=== PATIENT | male | born 1945 | race Caucasian/White ===

== ENCOUNTER 2016-08-21 01:05 | Emergency (ER) | payer MEDICARE, OTHER ==
[~2016-08-21] VITALS: Ht 170.2 cm; Wt 78.4 kg
[2016-08-21 01:05] VITALS: TEMP 97.8; Ht 170.2 cm; Wt 78.4 kg
[~2016-08-21 01:05] MED LIST: AMIT10TA6 PO; HYDR-3989 PO; HYDR12.530 PO; PERM60CR4 TOP
--- NOTE | 2016-08-21 01:07 | NUR ---
PROVIDER DR GUALLPA IN ROOM TO SEE PT. DAUGHTER AT BEDSIDE
--- OUTSIDE RECORDS SUMMARY | 2016-08-21 01:09 | XMS REPORT | Continuity of Care Document ---
Author Author [facility] Organization [facility] Address Unknown Phone Unavailable Support Name Relationship Address Phone MARCELO WEATHERS APRN Caregiver [address] [place] [id number] Unavailable MITRA SCRUGGS MD Caregiver [address] [facility] [address] [place] [address] Unavailable DARIANACHACORTA DIAZI DPOA Next Of Kin [address] [place] [address] Insurance Providers Guarantor Uziel Malik Address [address] [place] [address] Email DENIED NO TO PT [place] Payer Medicare Policy Number [id number] Subscriber's Name Uziel Malik Relationship 18 Self Effective Date 10 Payer [facility] Policy Number [id number] Subscriber's Name Uziel Malik Relationship 18 Self Chief Complaint and Reason for Visit Chief Complaint Skin Rash/Abscess/Injury Reason for Visit [id number] Problems Active Problems Medical Problem Onset Date Status Right hip pain Unknown Acute Sciatica Unknown Acute Past Problems Medical Problem Onset Date Excoriation Unknown Left against medical advice Unknown Neuropathic pain Unknown Scabies exposure Unknown Medications Current Home Medications Medication Dose Units Route Directions Days Qty Instructions Start Date Acetaminophen/Hydrocodone Bitart ([place] 5-325 Tablet) 5-325 Tablet 1 Tab Oral Every 4-6 Hours as needed for Pain 15 Tablet 04/09/16 Amitriptyline Hcl 10 Mg Tablet 2 Tab Oral Bedtime 10/24/15 Hydrochlorothiazide 12.5 Mg Capsule 1 Cap Oral Daily 10/24/15 Permethrin 60 Gm Cream..g. 60 Ml Topically One Time 60 Milliliter After showering, apply head to toe for 8-14 hours, then rinse. Comb through hair and paul. Supervising physician Dr. Jean Clark Medicine A[facility] [address] [phone] 05/21/16 Past Home Medications Medication Directions Ordered Status Amoxicillin Trihydrate (Amoxicillin) 500 Mg Capsule, 03/28/09 Discontinued B/P Med , 06/10/08 Discontinued Clonazepam (Klonopin) 0.5 Mg Tablet, 0.5 Mg Oral 03/28/09 Discontinued Levalbuterol Hcl (Xopenex) 1.25 Mg/3 Ml Solution, 1.25 Mg Inhalation Discontinued Lorazepam 1 Mg Tablet, 1 Mg Oral Qhs 03/28/09 Discontinued Zolpidem Tartrate (Ambien) 5 Mg Tablet, 5 Mg Oral Qhs 03/28/09 Discontinued Social History Social History Problem Response Recorded Date/Time Onset Date Status Chewing Tobacco Status Yes 09/24/2012 9:18am Not Applicable Not Applicable Hx Substance Use No 04/09/2016 1:22pm Not Applicable Not Applicable Hx Alcohol Use Y 3-4 beers daily 04/09/2016 1:22pm Not Applicable Not Applicable Has the pt used tobacco in the last 12 months Yes 09/24/2012 9:18am Not Applicable Not Applicable Tobacco Usage smoke 11/12/2014 9:52am Not Applicable Not Applicable Hospital Discharge Instructions No hospital discharge instructions. Plan of Care Discharge Date 05/21/16 12:10pm Disposition 01 DISCHARGED HOME, SELF-CARE Condition at Discharge Stable Instructions/Education Provided Scabies (DC) Acute Rash (ED) Prescriptions See Medication Section Referrals MITRA SCRUGGS MD Address: [facility] [address] Additional Instructions/Education Use permethrin cream today as directed. Follow with primary care provider earliest available appointment. Functional Status No functional status results. Allergies, Adverse Reactions, Alerts Allergen Type Severity Reaction Status Last Updated Morphine Adverse Reaction Severe ANXIETY/"MAKES ME CRAZY" Active 05/21/16 Immunizations Query Response on File Recorded Date/Time Hx Influenza Vaccination Y 201311/12/14 8:45am Hx Pneumococcal Vaccination Y 200311/12/14 8:45am Hx Influenza Vaccination Y 201311/12/14 8:45am Influenza Vaccine Hx 05/21/16 11:35am Pneumococcal PCV13 Vaccine Hx 02/01/2011 04/09/16 1:43pm Tetanus Diptheria Vaccine History UNSURE 05/21/16 11:35am Vital Signs Acute Vital Signs Vital Response Date/Time Temperature (Fahrenheit) 96.8 deg F (96.8 - 99.1) 05/21/2016 11:31am Temperature (Calculated Celsius) 36.98417 degrees C (36.0 - 37.3) 05/21/2016 11:31am Pulse Rate (adult) 78 bpm (60 - 100) 05/21/2016 11:31am Respiratory Rate 16 breaths/min (10 - 20) 05/21/2016 11:31am O2 Sat by Pulse Oximetry 97 % (90 - 100) 05/21/2016 11:31am Blood Pressure 145/81 mm Hg 05/21/2016 11:31am Height (Feet) 5 feet 04/09/2016 12:47pm Height (Inches) 64.00 inches 05/21/2016 11:31am Weight (Kilograms) 73.900 kg 05/21/2016 11:31am Body Mass Index (BMI) 27.0 05/21/2016 11:31am Results No known relevant diagnostic tests, laboratory data and/or discharge summary. Procedures Procedure Status Date Provider(s) Emergency dept visit Completed 04/09/16 Encounters Encounter Location Arrival/Admit Date Discharge/Depart Date Attending Provider Departed Emergency Room [facility] 05/21/16 11:21am 05/21/16 12: 10pm MARCELO WEATHERS APRN Departed Emergency Room [facility] 04/09/16 12:42pm 04/09/16 1: 36pm MARY GAMBOA MD Recent Diagnosis
--- OUTSIDE RECORDS SUMMARY | 2016-08-21 01:10 | XMS REPORT | Continuity of Care Document ---
Author Author [facility] Organization [facility] Address Unknown Phone Unavailable Allergies Medications Problems Procedures Results Encounters ACCT No. Visit Date/Time Discharge Status Pt. Type Provider Facility Loc./Unit Complaint [id number] 06/21/2013 12:58:00 06/21/2013 23 :59:59 [facility] Outpatient
[2016-08-21] MEDS ORDERED: DEXAMETHASONE 4mg/ml - 1ml INJECTION IM ONE (01:15)
[2016-08-21] MEDS ORDERED: ALBUTEROL/IPRATROPIUM INHAL. 2.5mg-0.5mg/3ml Neb. AEROSOL ONE ×3 (01:15→03:15)
--- NOTE | 2016-08-21 01:24 | ERPDOC ---
Departure Disposition Decision Date: August 21, 2016 Disposition Decision Time: 03:13 Disposition: 01 DISCHARGED HOME, SELF-CARE Impression Impression Impression: Primary Impression: COPD exacerbation Severity: Severe Condition: Improved Seen By: Physician only Referrals: MITRA SCRUGGS MD (Family) Patient Instructions: COPD (Chronic Obstructive Pulmonary Disease) (ED) Problems/Meds/Labs Reviewed?: Yes Medications reviewed and manag: Yes Additional Instructions: DuoNeb treatments, nebulized one treatment every 2-4 hours as needed for cough or wheezing Continue all your normal medications as prescribed Follow up care ordered?: Yes Mental Status: Alert HPI - Dyspnea General Chief Complaint: Dyspnea/Respdistress Stated Complaint: ASTHMA ATTACK Time Seen by Provider: 01:06 Source: patient Exam Limitations: no limitations HPI - Dyspnea Initial Comments Patient states approximately 45 minutes ago while he was at his home, he began having severe dyspnea. Patient has COPD, and uses Combivent/albuterol metered- dose inhalers only as needed. Patient does have a nebulizer, but doesn't like to use it because it upsets his dog in the home. Patient denies any fevers, increased mucus production or cough. Occurred At: home Onset/Timing: Rapid Duration: 1 hr Severity: moderate, severe Activities at Onset: none Prior Episodes/Possible Cause: occasional episodes Modifying Factors: IMPROVES WITH: inhaler Associated Symptoms: shortness of breath, DENIES: chest pain, cough, diaphoresis, fever/chills, headaches, loss of appetite, malaise, nausea/vomiting , rash, seizure, syncope, weakness Aspirin Treatment Today: unknown Hx of Similar Symptoms: Yes Allergies: Coded Allergies: morphine (Verified Adverse Reaction, Severe, ANXIETY/"MAKES ME CRAZY", 05/21) Past History Past Medical History Metabolic: hypertension Respiratory: COPD Musculoskeletal: back pain Surgical History General: back Vaccines Hx Influenza Vaccination: Yes (2013) Hx Pneumococcal Vaccination: Yes (2003) Social History Substance Use Type: does not use Alcohol Intake: none Current Occupational Status: retired Review of Systems Constitutional Constitutional: DENIES: appetite decrease, appetite increase, chills, dizziness , fever, weakness ENMT Ears: DENIES: pain Hearing: DENIES: hearing loss, tinnitus Balance: DENIES: vertigo Mouth/Throat: DENIES: change in swallowing, change in voice, hoarsness, painful swallowing, sore throat Cardiovascular Cardiac: DENIES: chest pain, dyspnea on exertion Rhythm/Rate: DENIES: irregular beat, palpitations, tachycardia Vascular: DENIES: pedal edema Pulmonary Respiratory: dyspnea, DENIES: cough, hyperventilation, pleuritic chest pain, pneumonia hx, sputum, tachypnea GI Upper Abdomen: DENIES: dysphagia, heartburn/indigestion, nausea, pain, vomiting Lower Abdomen: DENIES: blood in stool, constipation, diarrhea, pain General: DENIES: burning, dysuria, frequency, pain, urgency Musculoskeletal General: DENIES: cramps, joint pain, joint swelling, pain, weakness Integumentary Skin: DENIES: rash, sores Neurological General: DENIES: headache, numbness, tingling, vertigo, weakness Psychiatric Psychiatric: DENIES: anxiety, depression, nervousness Physical Exam General General Nourishment: well nourished, well developed, appears stated age, no acute distress General Body Habitus: well groomed Vitals and Pain First Documented Vital Signs Date Time Temp Pulse Resp B/P Pulse Ox O2 Delivery O2 Flow Rate FiO2 08/21/16 01:05 97.8 101 30 162/83 78 Room Air Weight: Kilograms: Height (feet): 5 Height (inches): 64.00 Triage Pain Scale: RN VS reviewed by Provider: Yes Comments Patient was hypoxemic on arrival, with O2 saturations at 70% after ambulating from the lobby. Normal Exams: Head: Normocephalic w/o trauma Eyes: Pupils are PERRLA w/ EOMI, No scleral icterus, irritation, or foreign bodies noted ENMT: No facial trauma, nasal exudates, pharyngeal erythema, or exudates are noted Neck: Full range of motion, without adenopathy, JVD, bruits or thyromegaly CV: Regular rate and rhythm, without murmur or gallop, Pulses 2+ all extremities, capillary refill, <2 seconds all ext., no pedal edema noted Abdomen: Bowel sounds positive, soft, non-tender, non-distended, no hepatosplenomegaly, masses or bruits noted Lymphatic: No lymphadenopathy, or lymphedema noted Musculoskeletal: No tenderness, or deformity noted, good range of motion, all extremities Integumentary: No rashes, hives, or bruising noted, hair and nails, without abnormality Neurologic: Patient is alert, and oriented, cranial nerves, motor/sensory/ cerebellar, exams w/o gross deficits, to observation Psychiatric: Patient exhibits, appropriate attention, emotion and affect Respiratory (brief) Respiratory: FOUND: equal bilaterally, symmetrical, wheezes, NOT FOUND: clear all vaca (course tight wheezes bilaterally with decreased air movement, and extended expiratory phase), rales, tenderness Progress Results/Orders Orders Procedure Category Date Status Time Albuterol/Ipratropium PHA 08/21/16 Complete (Duoneb) 01:15 Dexamethasone Inj PHA 08/21/16 Complete (Decadron) 01:15 Albuterol/Ipratropium PHA 08/21/16 Complete (Duoneb) 01:30 Albuterol (Proventil) PHA 08/21/16 Complete 02:45 Albuterol/Ipratropium PHA 08/21/16 Verified (Duoneb) 03:15 Medications Current ED Medications Albuterol/ Ipratropium (Duoneb) 6 ml O ONCE AEROSOL Last administered on 01:14; Start 08/21/16 at 01:15; Stop 08/21/16 at 01:16; Status DC Dexamethasone Sodium Phosphate (Decadron) 8 mg O ONCE IM Last administered on 08/21/16 01:26; Start 08/21/16 at 01:15; Stop 08/21/16 at 01:16; Status DC Albuterol/ Ipratropium (Duoneb) 6 ml O ONCE AEROSOL Last administered on 01:41; Start 08/21/16 at 01:30; Stop 08/21/16 at 01:31; Status DC Albuterol (Proventil) 5 mg O ONCE AEROSOL Last administered on 08/21/16 02:42 ; Start 08/21/16 at 02:45; Stop 08/21/16 at 02:46; Status DC Progress Progress Patient given dexamethasone 8 mg IM, and 2 [id number] DuoNeb nebs - patient improving after 2 nebs, but required 2 additional DuoNeb nebs. Still having moderate wheezing, given 2 additional albuterol treatments, and patient feels that he is back to his normal baseline. Patient dispensed 3 premixed DuoNeb treatments to use at home and his nebulizer tonight, and prescription for the same. Patient was offered further treatment in the ER which he declined, patient was also offered admission to the hospital if he felt that he required it, and the patient again declined. DIPAK GUALLPA MD August 21, 2016 01:24
--- OUTSIDE RECORDS SUMMARY | 2016-08-21 01:24 | XMS REPORT | Continuity of Care Document ---
Author Author [facility] Organization [facility] Address Unknown Phone Unavailable Allergies Medications Problems Procedures Results Encounters ACCT No. Visit Date/Time Discharge Status Pt. Type Provider Facility Loc./Unit Complaint [id number] 06/21/2013 12:58:00 06/21/2013 23 :59:59 [facility] Outpatient
[2016-08-21] MEDS ORDERED: CYAN1TAB46 PO (01:35)
[2016-08-21] MEDS ORDERED: LOSA25TA34 PO (01:35)
[2016-08-21] MEDS ORDERED: IBUP-1547 PO (01:35)
[2016-08-21] MEDS ORDERED: METO25TA6 PO (01:35)
--- NOTE | 2016-08-21 02:30 | NUR ---
STATUS O2 TAPPERED TO ROOM AIR. PT REMAINS AT 91-92% ON ROOM AIR
[2016-08-21] MEDS ORDERED: ALBUTEROL INH.SOLN. 2.5 MG/0.5 ML (0.5%) Neb. AEROSOL ONE (02:45)
--- NOTE | 2016-08-21 03:20 | NUR ---
TAKE HOME PREPACK PT GIVEN X3 DUONEB VIALS FOR HOME US EVERY 2-4 HRS NEEDED W/ PT VERBALIZING UNDERSTANDING OF ADMINSTRATION.
[2016-08-21 03:24] VITALS: BP 140/69; PULSE 98; RESP 20; O2SAT 92
--- NOTE | 2016-08-21 03:24 | NUR ---
DISCHARGE PT GIVEN INSTRUCTIONS FOR CONT CARE OF COPD W/ RX X1 FOR DUONEB MED AMPULES, PT VERBALIZED UNDERSTANDING AND SIGNED FORM. PT LEFT ER ALERT, AMBULATORY W/ ASSIST CONDITION IMPROVED VS CHARTED IN NO DISTRESS.
== END 2016-08-21 03:24 | disposition home or self-care (01) ==
LOC: ED 01:05
DX: J44.1 Chronic obstructive pulmonary disease with (acute) exacerbation (principal)
CPT/HCPCS: 94640; 96372; 99283; J1100; J7611